=== PATIENT | male | born 1995 | race Hispanic/Latino ===

== ENCOUNTER 2024-09-15 01:45 | Emergency (ER) | payer SELFPAY ==
--- OUTSIDE RECORDS SUMMARY | 2024-09-15 02:03 | XMS REPORT | Continuity of Care Document ---
Author Name Unknown Address [address] [facility] [address] [place] [address] [facility] thconnect Address [address] [facility] [place] [address] Care Team Providers Care Sheet Metal Former Name Role Phone ARLENE SEVERINO Attending Clinician UnavailSURI Ivory Attending Clinician Unavailable ROLANDO ARCINIEGA Attending Clinician Unavailable WALTER CARRERA Attending Clinician UnavailZOE mancini MA Attending Clinician Unavailable BLAINE NICHOLS Attending Clinician Unavailable WALTER CARRERA Admitting Clinician BILLIE Sow Admitting Clinician Un available Encounters Start Date/Time End Date/Time Encounter Type Admission Type Attending Clinicians Care Facility Care Department Encounter ID Source 2024-08-01 18:46:00 2024-08-01 19:01:00 Emergency ER ARLENE SEVERINO [facility] [id number] [facility] 2024-07-20 01:27:00 2024-07-20 05:17:00 Emergency ER SURI EDWARDS [facility] [id number] [facility] 2024-04-28 20:51:00 2024-04-29 01:28:00 Emergency ER ROLANDO ARCINIEGA [facility] [id number] [facility] 2021-04-23 04:36:00 2021-04-23 23:59:00 Outpatient WALTER CARRERA [facility] [id number] [facility] 2021-04-23 04:23:00 2021-04-23 11:56:00 Emergency E ZOE TAMAYO [facility] [id number] [facility] 2021-04-23 03:02:00 2021-04-23 04:00:00 Emergency TR BLAINE NICHOLS [facility] [id number] [facility]
--- NOTE | 2024-09-15 05:52 | ER ---
Nurse's Notes [facility] Name: Keith Mc Age: 29 yrs Sex: Male : 1995 Arrival Date: 09/15/2024 Time: 00:56 Bed DX4 Private MD: Diagnosis: Alcohol abuse Presentation: 09/15 01:01 Chief complaint: EMS states: found by [employer] sitting in vehicle intoxicated. no lg3 complaints at this time. Coronavirus screen: At this time, unable to obtain information related to travel outside the [place] Ebola Screen: No symptoms or risks identified at this time. Risk Assessment: Do you want to hurt yourself or someone else? Patient reports no desire to harm self or others. Onset of symptoms was September 15, 2024. 01:01 Method Of Arrival: EMS: [facility] lg3 01:01 Acuity: SARA 5 lg3 06:34 Initial Sepsis Screen: Does the patient meet any 2 criteria? No. Patient's initial lg3 sepsis screen is negative. Does the patient have a suspected source of infection? No. Patient's initial sepsis screen is negative. Triage Assessment: 01:11 General: Appears in no apparent distress. comfortable, Behavior is uncooperative, lg3 Smells of alcohol. Pain: Denies pain. EENT: No deficits noted. No signs and/or symptoms were reported regarding the EENT system. Neuro: Hook Agitation-Sedation Scale (RASS): -1 Drowsy Level of Consciousness is stuporous, Oriented to person, Speech is slurred. Cardiovascular: No deficits noted. Capillary refill < 3 seconds Clubbing of nail beds is absent JVD is absent Patient's skin is warm and dry. Respiratory: No deficits noted. Airway is patent Respiratory effort is even, unlabored, Respiratory pattern is regular, symmetrical. GI: No deficits noted. No signs and/or symptoms were reported involving the gastrointestinal system. Abdomen is round non-distended. : No signs and/or symptoms were reported regarding the genitourinary system. Derm: No deficits noted. No signs and/or symptoms reported regarding the dermatologic system. Skin is intact, is healthy with good turgor, Skin is dry, Skin is normal, Skin temperature is warm. Musculoskeletal: No deficits noted. No signs and/or symptoms reported regarding the musculoskeletal system. Circulation, motion, and sensation intact. Range of motion: intact in all extremities. Historical: - Allergies: 01:11 Unable to obtain; lg3 - Home Meds: :11 Unable to obtain [Active]; lg3 - PMHx: :11 Unable to Obtain; lg3 - PSHx: 01:11 Unable to Obtain; lg3 - Immunization history:: Adult Immunizations unknown. - Infectious Disease History:: Denies. - Social history:: Smoking status: unknown Patient uses alcohol, on a daily basis. Screenin:01 [facility] ED Fall Risk Assessment (Adult) History of falling in the last 3 months, lg3 including since admission No falls in past 3 months (0 pts) Confusion or Disorientation Yes (5 pts) Intoxicated or Sedated Yes (3 pts) Impaired Gait No (0 pts) Mobility Assist Device Used No (0 pt) Altered Elimination No (0 pt) Score/Fall Risk Level 3 or more points = High Risk Oriented to surroundings, Maintained a safe environment, Educated pt \\T\\ family on fall prevention, incl call for assistance when getting out of bed, Assessed \\T\\ reinforced patient's understanding of fall precautions, Provided non-skid footwear. Abuse screen: Denies threats or abuse. Denies injuries from another. Nutritional screening: No deficits noted. Tuberculosis screening: No symptoms or risk factors identified. Assessment: 01:01 General: see triage assessment. lg3 02:34 Reassessment: Patient appears in no apparent distress at this time. No changes from lg3 previously documented assessment. pt quietly resting at this time. 04:17 General: pt quietly resting at this time. lg3 05:43 General: Appears in no apparent distress. comfortable, Behavior is calm, cooperative. lg3 Pain: Denies pain. Neuro: No deficits noted. [place] Agitation-Sedation Scale (RASS): 0 - Alert and Calm Level of Consciousness is awake, alert, obeys commands, Oriented to person, place, time, situation. Cardiovascular: No deficits noted. Denies chest pain, shortness of breath, Capillary refill < 3 seconds Clubbing of nail beds is absent JVD is absent Patient's skin is warm and dry. Respiratory: No deficits noted. Airway is patent Respiratory effort is even, unlabored, Respiratory pattern is regular, symmetrical. GI: No deficits noted. No signs and/or symptoms were reported involving the gastrointestinal system. : No signs and/or symptoms were reported regarding the genitourinary system. EENT: No deficits noted. No signs and/or symptoms were reported regarding the EENT system. Derm: No deficits noted. No signs and/or symptoms reported regarding the dermatologic system. Skin is intact, is healthy with good turgor, Skin is dry, Skin is normal, Skin temperature is warm. Musculoskeletal: No deficits noted. No signs and/or symptoms reported regarding the musculoskeletal system. Circulation, motion, and sensation intact. Range of motion: intact in all extremities. 06:22 General: Appears in no apparent distress. kj2 Psych: 06:33 [place] Suicide Severity Screening: In the past month, have you wished you were lg3 or wished you could go to sleep and not wake up? Patient responds "No." "In the past month, have you actually had any thoughts of killing yourself?" Patient responds "no." "In your lifetime, have you ever done anything, started to do anything, or prepared to do anything to end your life?" Patient responds "no.". Subjective:. Objective: Patient is cooperative, Speech is normal. Pt denies substance abuse. Vital Signs: 01:01 lg3 05:43 BP 131 / 74; Pulse 81; Resp 17 S; Temp 97.6(O); Pulse Ox 99% on R/A; Weight 79.38 kg lg3 (R); Height 5 ft. 5 in. (R); Pain 0/10; 05:43 Body Mass Index 29.12 (79.38 kg, 165.1 cm) lg3 05:43 Pain Scale: Adult lg3 01:01 pt refusing vitals at this time. provider notified lg3 ED Course: 00:56 Patient arrived in ED. ra3 00:57 Eduardo Burger MD is Attending Physician. ec2 01:01 Patient taken to an internal wait recliner. lg3 01:01 Patient has correct armband on for positive identification. Warm blanket given. Pillow lg3 given. 01:11 Triage completed. lg3 01:11 Arm band placed on right wrist. lg3 01:15 Maintain EMS IV. Dressing intact. Good blood return noted. Site clean \\T\\ dry. Gauge \\T\\ lg 3 site: 20 LFA. 02:06 Attempted to get vitals on patient, patient refused. Charge Nurse and Physician rv1 notified. 06:22 No provider procedures requiring assistance completed. IV discontinued, intact, kj2 bleeding controlled, No redness/swelling at site. Pressure dressing applied. Administered Medications: No medications were administered Medication: 05:43 VIS not applicable for this client. lg3 Outcome: 05:51 Discharge ordered by MD. ec2 06:34 Discharged to home with family, lg3 06:34 Condition: stable 06:34 Discharge instructions given to patient, Instructed on discharge instructions, follow up and referral plans. 06:35 Patient left the ED. lg3 Signatures: Trista Burgos, RN RN lg3 Nannette Abbott rv1 Eduardo Burger MD MD ec2 Tamiko Robertson ra3 Joya Simental, ILDA RN kj2 Corrections: (The following items were deleted from the chart) 04:18 02:34 Reassessment: Patient appears in no apparent distress at this time. No changes lg3 from previously documented assessment. lg3
--- NOTE | 2024-09-15 05:52 | EDPHYS ---
Physician Documentation [facility] Name: Keith Mc Age: 29 yrs Sex: Male : 1995 Arrival Date: 09/15/2024 Time: 00:56 Bed DX4 Private MD: ED Physician Eduardo Burger HPI: 09/15 00:58 This 29 yrs old Male presents to ER via Unassigned with complaints of ETOH ec2 Abuse - Intoxication. 00:58 Patient arrives today with alcohol intoxication. No specific complaints. EMS was called ec2 after police found patient intoxicated in a parked car.. Historical: - Allergies: 01:11 Unable to obtain; lg3 - Home Meds: 01:11 Unable to obtain [Active]; lg3 - PMHx: :11 Unable to Obtain; lg3 - PSHx: 01:11 Unable to Obtain; lg3 - Immunization history:: Adult Immunizations unknown. - Infectious Disease History:: Denies. - Social history:: Smoking status: unknown Patient uses alcohol, on a daily basis. ROS: 00:58 Constitutional: as per hpi ec2 Exam: 00:58 Constitutional: GEN: NAD Head: atraumatic Eyes: EOMI Ears: External ears are ec2 normal. CV: regular rate LUNGS: no respiratory distress ABD: non-distended SKIN: no evidence of rashes MSK: no evidence of trauma. Psych cooperative individual who was clearly intoxicated Vital Signs: 01:01 lg3 05:43 BP 131 / 74; Pulse 81; Resp 17 S; Temp 97.6(O); Pulse Ox 99% on R/A; Weight 79.38 kg lg3 (R); Height 5 ft. 5 in. (R); Pain 0/10; 05:43 Body Mass Index 29.12 (79.38 kg, 165.1 cm) lg3 05:43 Pain Scale: Adult lg3 01:01 pt refusing vitals at this time. provider notified lg3 MDM: 00:58 Medical Screening Exam initiated ec2 00:58 Data reviewed: vital signs. ED course: Patient arrives today with alcohol intoxication ec2 with no acute concerns. Examination is unrevealing. Will monitor until clinically sober.. 05:51 ED course: Patient ambulatory, alert and oriented without issue. Will discharge home. ec2 Instructed him to stop drinking alcohol.. Administered Medications: No medications were administered Disposition Summary: 09/15/24 05:51 Discharge Ordered Notes: You should cut back on your drinking and not do drugs
Location: Home ec2 Condition: Stable ec2 Diagnosis - Alcohol abuse ec2 Followup: ec2 - With: Private Physician - When: - Reason: Re-evaluation by your physician Discharge Instructions: - Discharge Summary Sheet ec2 - Alcohol Intoxication, Avaz-ip-Dhyo ec2 Forms: - Medication Reconciliation Form ec2 - Antibiotic Education ec2 - Prescription Opioid Use ec2 - Patient Portal Instructions ec2 - Leadership Thank You Letter ec2 Signatures: Trista Burgos RN RN lg3 Eduardo Burger MD MD ec2 Corrections: (The following items were deleted from the chart) 00:59 00:58 Patient arrives today with alcohol intoxication. No specific complaints. EMS was ec2 called after police found patient intoxicated in a car.. ec2
== END 2024-09-15 06:35 | disposition home or self-care (01) ==
LOC: ER 01:45
DX: F10.10 Alcohol abuse, uncomplicated (principal)
CPT/HCPCS: 99283